=== PATIENT | female | born 1930 | race Caucasian/White ===

== ENCOUNTER → 2016-09-03 | Outpatient (CLI) | payer MEDICARE, BC ==
[~2016-09-03] MED LIST: ALDACTONE100 MG PO; BREO ELLIPTA 11 EACH INH; CALCIUM 1,0001 EACH PO; FEOSOL325 MG PO; GLUCOPHAGE500 MG PO; LASIX40 MG PO; LEVOTHROID (SY50 MCG PO; MYAMBUTOL400 MG PO; OXYGEN M-15; PEPCID20 MG PO; PRILOSEC20 MG PO; PROBIOTIC1 EAC1 PO; TOPROL XL 5050 MG PO; ZITHROMAX500 MG PO
== END | disposition disaster alternative care site (69) ==
LOC: GOPD 08-30
PROC: 0W9G3ZZ Drainage of Peritoneal Cavity, Percutaneous Approach (ICD-10-PCS; principal; 2016-09-03)
DX: R18.8 Other ascites (principal)